=== PATIENT | male | born 1990 | race Caucasian/White ===

== ENCOUNTER 2024-09-07 21:45 | Emergency (ER) | payer BC, SELFPAY ==
[2024-09-07 21:46] VITALS: BP 119/93
--- NOTE | 2024-09-07 23:05 | ED.GENMED ---
History of Present Illness
General
Chief Complaint: Ear Problem
Source: patient
Exam Limitations: none
Time Seen by Provider: 09/07/24 22:22
Nursing documentation reviewed up to this point in time: agreed with
History of Present Illness
History of Present Illness:
33 y/o M
healthy
here with L ear pressure and muffled hearing and some lightheadednes with walking and fatigue
had cold sypmtoms for 5 days
no fever
+ nasal congestion, sinus congestion
no sore throat, cough, vertigo
no significant hearing loss
no vision changes
no headache
no near ysncope
nothing taken for ysmptoms
pt is asking for a few days off from work
unvaccinated covid
Past History
Past History
ED Past Medical History: GERD
ED Past Surgical History: None
Social History
Tobacco: Former smoker
Review of Systems
Review of Systems
Allergies reviewed?: Yes
All Other Systems: Not applicable
Phy Exam
Physical Exam
Physical Exam:
GENERAL: Alert , in no apparent distress, very well appearing
EYE: pupils equal and reactive no nystagmus
NECK: Supple
ENT: L tm mild effusion clear fluid, no erythema, normal gross hearing, nontender tragus, R tm normal
nasal turbinates swollen, red pharynx nonerytematous no tonsillar hypertrophy or exudates
CARDIAC: Regular rate and rhythm, no edema
LUNGS: Clear breath sounds bilaterally, no acute respiratory distress, no wheezes/rales/rhonchi,
NEUROLOGICAL: Alert and oriented, no focal neuro deficits
SKIN: Warm and dry, skin intact.
MUSCULOSKELETAL: No edema, well perfused.
PSYCH: Normal and appropriate interaction.
Course
Orders/Labs/Results
Orders:
Orders
09/07/24 23:12
Pseudoephedrine [Sudafed] 30 mg PO NOW STA
Vital Signs
Initial and Last Documented VS:
Initial Vital Signs
Temp Pulse Resp BP Pulse Ox
36.6 C 86 16 119/93 99
09/07/24 21:46 09/07/24 21:46 09/07/24 21:46 09/07/24 21:46 09/07/24 21:46
Last Documented Vital Signs
Temp Pulse Resp BP Pulse Ox
36.6 C 86 16 119/93 99
09/07/24 21:46 09/07/24 21:46 09/07/24 21:46 09/07/24 21:46 09/07/24 21:46
MDM/Problems Addressed
Differential Diagnosis Includes:
serious otitis meidia, covid, vertigo, labrythritis, OM
MDM/Problems Addressed:
33 y/o M
uri sxs
now with L ear pressure and slightly muffled hearing
fatigued
no fever
no drainae
no significnat pain
on exam mild clear fluid
no nystagmus
normal hearing
suspect serous otitis media
sudafed, flonase
consider ENT f/u for persistent sxs
*Critical Care Note
Total Time (30-74mins, 75-104mins- exclusive of procedures): Not Applicable
ED Attending Note
-
Portions of this chart may have been created with voice recognition software.� Occasional wrong word or��sound alike� substitutions may have occurred due to the inherent limitations of voice recognition software.
Discharge Plan
Departure
Patient Disposition: Home (Routine Discharge)
Date of Disposition: 09/07/24
Time of Disposition: 23:06
Patient with high blood pressure during this ER visit?: No
Condition: Fair
Covid-19: Not Applicable
Discharge Problem:
Acute serous otitis media
Instructions: Serous Otitis Media (DC)
Prescriptions:
New
fluticasone propionate [Allergy Relief (fluticasone)] 50 mcg/actuation spray,suspension
1 spray intranasal BID Qty: 16 0RF
pseudoephedrine HCl [Sudafed] 30 mg tablet
60 mg PO BID Qty: 20 0RF
No Action
pantoprazole 40 MG tablet,delayed release (DR/EC)
40 mg PO HS Qty: 21 0RF
Referrals:
NONE,* [Family Provider] -
Kristen Urrutia MD [Active] - Follow up in 5-7 days
Stand Alone Forms: Return to Work
Activity Restrictions/Additional Instructions:
You have a mild amount of fluid behind your ear which could be causing your symptoms. Try Sudafed twice a day 60 mg for 2 to 3 days in a row and Flonase nasal spray 1 spray each nostril twice a day. You can also take ibuprofen every 8 hours if you
are having any discomfort. If you are continuing to have the symptoms you may need to see an ear nose and throat doctor. If you develop vertigo which is a room spinning dizziness, fever, swelling, severe pain, ear drainage he should be seen again.
Interventions
Interventions:
*Risk Screen - Suicide Last Done: 09/07/24 23:26
*General Assessment Last Done: 09/07/24 21:46
*Neglect/Abuse Screening Last Done: 09/07/24 21:46
*ED COVID-19 Vaccine History Last Done: 09/07/24 21:46
*Nursing Disposition Last Done: 09/07/24 23:26
ED- Neurological Assessment Last Done: 09/07/24 22:08
Discharge Date and Time
Discharge Date/Time: 09/07/24 23:26
Print Language: SLOVENIAN
[2024-09-07] MEDS: SUDAFED 30 MG PO (23:24)
== END 2024-09-07 23:26 | disposition home or self-care (01) ==
LOC: EMR 21:45
PROVIDERS: EMERGENCY PHYSICIAN Emergency Medicine
DX: H65.02 Acute serous otitis media, left ear (principal); Z28.310 Unvaccinated for COVID-19; Z87.891 Personal history of nicotine dependence
CPT/HCPCS: 99282